=== PATIENT | male | born 1940 | race Caucasian/White ===

== ENCOUNTER → 2016-07-15 | Day surgery (SDC) | payer OTHER ==
[~2016-07-15] MED LIST: ALLOPURINOL300 MG PO; GLUCOTROL XL PO; LANOXIN125 MCG PO; LASIX20 MG PO; NORVASC10 MG PO; TENORMIN50 MG PO; TRAMADOL HCL50 M1 PO; ZESTRIL10 MG PO
--- NOTE | ~2016-07-15 | OR ---
Unit #: [id number] #: [id number] Patient: LIANNA RIVERA [id number] [address] [place], [place] [address] [id number] O MR#: [id number] NAME: LIANNA RIVERA ROOM: Date of Procedure: 07/15/2016 Admission Date: 07/15/2016 Surgeon: Selvin Bajwa M.D. : 1940 Attending Physician: Selvin Bajwa M.D. Primary Care Physician: Gilberto Hamilton M.D. SURGERY CENTER OPERATIVE NOTE PROCEDURE PERFORMED Lumbar epidural steroid injection under x-ray guided needle placement with provider administered conscious sedation. PREOPERATIVE DIAGNOSES 1. Acute lumbar radiculitis. 2. Spinal stenosis, lumbosacral spine. 3. Degenerative joint disease, lumbosacral spine. 4. Degenerative disk disease, lumbosacral spine. INDICATIONS FOR PROCEDURE The patient presents today with multiple years history of intermittent lumbar radicular pain, which has been variously treated with varying degrees of success over the years with conservative measures. However, over the course of the past 1 to 2 years, the patient has experienced crescendo pattern chronic pain, which has failed to respond to ongoing conservative measures and has now reached the point that it is interfering with his activities of daily living. After discussing risks and benefits of proceeding today with an L4-L5 epidural steroid injection and return on 07/31/2016 for potential L3-L4 and L5-S1 approach, the patient agreed this would be the appropriate course of action. DESCRIPTION OF PROCEDURE He was then taken to the operating room, where he was prepped and draped in a sterile manner. Standard monitors were applied. He was sedated with 1 mg of IV Versed initially requiring additional 1 mg of IV Versed throughout the duration of procedure. Lumbar epidural space was accessed at L4-L5 level using loss of resistance technique and x-ray guidance. Needle placement was confirmed with injection of 2 mL of Omnipaque. There was good superior and inferior flow at this L4-L5 needle placement. Following successful needle placement confirmation, which required an x-ray time of 6 seconds, the patient received an injectate containing 2 mL normal saline, 2 mL of 0.25% bupivacaine, and 80 mg of methylprednisolone. He tolerated this procedure well. He was discharged home with followup instructions, which include a return to this clinic on 07/31/2016. Dictated by... Ivette Jaeger/meseret Unit #: [id number] #: [id number] Patient: LIANNA RIVERA TD: 07/16/2016 01:27 JOB #: [id number] CC: Alex Chapman M.D. SURGERY CENTER OPERATIVE NOTE Page 1 of 1 X Jef Bajwa MD X PROCEDURE OPERATIVE NOTE
== END | disposition home or self-care (01) ==
LOC: CCSC 10:31
DX: M51.17 Intervertebral disc disorders with radiculopathy, lumbosacral region (principal); M47.27 Other spondylosis with radiculopathy, lumbosacral region; M48.07 Spinal stenosis, lumbosacral region
CPT/HCPCS: 82947; J1040; J2250

== ENCOUNTER → 2016-07-31 | Outpatient (CLI) | payer OTHER ==
--- NOTE | ~2016-07-31 | CT98 ---
[facility] A Service of [facility] RADIOLOGY TEXT RESULTS PATIENT: LIANNA RIVERA [facility] UNIT #: [id number] AGE: [address]: Jef Bajwa MD SEX: M ORDER DR: [id number] [facility] [address]. [place], [place] [address] [id number] O MR#: [id number] Acc #: [id number] NAME: LIANNA RIVERA : 1940 SEX: M STUDY DATE/TIME: 07/31/2016 10:32 UNIT: [facility] ROOM: STUDY DESCRIPTION: CT Lumbar Spine Wo Cont Ordering Physician: Selvin Bajwa M.D. Primary Care Physician: Gilberto Hamilton M.D. MEDICAL IMAGING REPORT This report is preliminary unless electronic signature is present EXAM Lumbar spine CT HISTORY Chronic back pain over the past 15 years. TECHNIQUE Thin-section axial imaging was obtained through the lumbar spine and evaluated at bone and soft tissue windows with multiplanar reformats. This CT exam was performed with one or more of the following radiation dose reduction techniques: automatic exposure control, adjustment of mA and/or kV according to patient size, and iterative reconstruction. FINDINGS Degenerative changes are seen throughout the lumbar discs. At T11-T12, there is disc degeneration with diffuse disc bulging. There is a right-sided lateral osteophyte that narrows the right foramen to a mild degree. At T12-L1, the disc is degenerated. There is broad-based mild posterior disc bulging and there is moderately severe bilateral facet disease. At L1-L2, there is broad-based posterior disc bulging with osteophyte formation and moderately severe bilateral facet disease. Foraminal narrowing is mild bilaterally. Central stenosis is mild. At L2-L3, there is severe degenerative disc disease, especially toward the left side of the disc. There are large left-sided osteophytes. Foraminal narrowing on the left is only present to a [id number]-[id number] degree. The right foramen is widely patent. Central stenosis at L2-L3 is moderately [facility] Service of [facility] RADIOLOGY TEXT RESULTS PATIENT: LIANNA RIVERA LOCATION: [facility] : [birth year] UNIT #: [id number] AGE: [address]: Jef Bajwa MD SEX: M ORDER DR: severe and facet disease is moderate on both sides. At L3-L4, there is severe degenerative disc disease with broad-based posterior disc bulging and osteophyte formation and advanced facet arthropathy. There is a focal lower lumbar levoscoliosis with vertebral body subluxation related to the scoliosis and degenerative changes. Central stenosis at this level is severe. Degenerative changes are slightly greater to the left than to the right. Foraminal narrowing is moderate on the right, severe on the left. At the L4-L5 level, the disc is severely degenerated, especially toward the right side. There is bilateral moderately severe facet disease as well. Foraminal stenosis is mild on the left and moderately severe on the right. There is loss of fat around the right side exiting nerve root. Central stenosis is moderately severe. At L5-S1, the disc is severely degenerated and there is moderately severe bilateral facet disease. Lateral osteophyte formation is seen within the foramina on both sides. Central stenosis is moderate. Foraminal stenosis is moderate on the left and moderately severe on the right. No fractures or destructive bone lesions are seen. No paraspinous masses are noted. IMPRESSION Advanced multilevel lower thoracic and lumbar degenerative disc and facet disease, as described above [id number]. Accompanying this is a lower lumbar levoscoliosis. Degenerative changes are asymmetrically worse to the left at L2-L3 and L3-L4 and to the right at L4-L5 and L5-S1 because of this scoliosis. Central stenosis is worst at the L3-L4 level, also present to a moderately severe degree at L2-L3 and L4-L5. Dictated by... Alfred Quiñones M.D. THIS IS AN ELECTRONICALLY VERIFIED REPORT Alfred Quiñones M.D. at 08/01/2016 6:47 PM UZMA/sergio TD: 08/01/2016 15:21 JOB #: [id number] MEDICAL IMAGING REPORT Page 1 of 1 COPY
== END | disposition home or self-care (01) ==
LOC: EDSTATUS 08:00 → CCSC 08:00 → CCAT 08:04 → CCSC 09:00
DX: M54.16 Radiculopathy, lumbar region (principal); M51.36 Other intervertebral disc degeneration, lumbar region; M48.06 Spinal stenosis, lumbar region; M41.86 Other forms of scoliosis, lumbar region; M47.896 Other spondylosis, lumbar region
CPT/HCPCS: 72131; J1040; J2250

== ENCOUNTER → 2016-08-07 | Day surgery (SDC) | payer OTHER ==
--- NOTE | ~2016-08-07 | OR ---
Unit #: [id number] #: [id number] Patient: LIANNA RIVERA [id number] [address] [place], [place] [address] [id number] O MR#: [id number] NAME: LIANNA RIVERA. ROOM: Date of Procedure: 08/07/2016 Admission Date: 08/07/2016 Surgeon: Selvin Bajwa M.D. : 1940 Attending Physician: Jef Bajwa Primary Care Physician: Gilberto Hamilton M.D. SURGERY CENTER OPERATIVE NOTE PROCEDURE PERFORMED Lumbar epidural steroid injection under x-ray guided needle placement. PREOPERATIVE DIAGNOSES 1. Acute lumbar radiculitis. 2. Spinal stenosis, lumbosacral spine. 3. Degenerative joint disease, lumbosacral spine. 4. Degenerative disk disease, lumbosacral spine. 5. Facet arthralgia, lumbosacral spine. 6. Facet arthrosis, multiple levels. INDICATIONS FOR PROCEDURE The patient presents today status post one previous lumbar approach epidural steroid injection for an acute radiculitis, which had failed to respond to conservative treatment. He states he got some relief; however, the relief was not complete and not long-lasting as he has had return of symptoms. He also during his time of improvement, experienced a breakthrough pain from facet arthralgia. He is in possession of a CT scan, which shows multiple level disk disease as well as multiple level facet arthrosis. After reviewing the results of the CT scan and the results of his previous treatments, the patient and I felt that a dual needle access technique epidural steroid injection today as well as referral to [facility] for a potential facet injections and radiofrequency ablation would be the appropriate course of action. He is also scheduled to return to the clinic on 11/13 for long-term followup. DESCRIPTION OF PROCEDURE Following these discussions, the patient was taken to the operating room, where he was prepped and draped in sterile manner. Standard monitors were applied. He refused all forms of sedation and lumbar epidural space was accessed at the L5-S1 and L2-L3 levels using loss of resistance technique and x-ray guidance. At the L5-S1, 2 mL of injected dye was 80% in the inferior direction. At L2-L3 level, it was injected 2 mL of dye, which at that level was approximately 60% superior and 40% inferior. Following successful needle placement and confirmation at these two locations, which required an x-ray time of 8 seconds. The patient received an injectate containing 4 mL normal saline and 40 mg of methylprednisolone at each injection for a total injectate volume of 8 mL of normal saline and 80 mg of methylprednisolone. He tolerated this procedure well, was discharged home with followup instructions as described above. In his next visit, he may will have a single L3-L4 injection with potential second needle placement depending upon the spread of the x-ray dye at this L3-L4 level. Unit #: [id number] #: [id number] Patient: LIANNA RIVERA Dictated by... Selvin Bajwa M.D. JRG/modl TD: 08/07/2016 14:37 JOB #: [id number] CC: Alex Chapman M.D. SURGERY CENTER OPERATIVE NOTE Page 1 of 1 X Jef Bajwa MD X PROCEDURE OPERATIVE NOTE
== END | disposition home or self-care (01) ==
LOC: CCSC 10:46
DX: M51.17 Intervertebral disc disorders with radiculopathy, lumbosacral region (principal); M47.27 Other spondylosis with radiculopathy, lumbosacral region; M48.07 Spinal stenosis, lumbosacral region; E11.9 Type 2 diabetes mellitus without complications
CPT/HCPCS: 82947; J1040; J2250